=== PATIENT | female | born 1990 | race Two or more races ===

== ENCOUNTER 2016-11-06 17:27 | Emergency (ER) | payer OTHER ==
[2016-11-06 17:36] VITALS: BP 133/89
--- NOTE | 2016-11-06 18:56 | ER Document Report ---
ED Skin Rash/Insect Bite/Abscs - General Chief Complaint: Rash Stated Complaint: RASH ALL OVER Time Seen by Provider: 11/06/16 18:25 Mode of Arrival: Ambulatory Information source: Patient Notes: 26-year-old female presents to ED for rash to her arms and legs that she has had for quite a while. She states she has been to the [facility] in the which is her primary MD at times and had biopsies to see if there was a fungal rash or insect back negative. She states she asked for dermatology review told they needed to do some more testing on it before they sent her to a [facility]. She states she taken Benadryl and triamcinolone for the rash and it is not helping at all. They told her that it looked like it might be psoriasis. TRAVEL OUTSIDE OF THE [place] IN LAST 30 DAYS: No - HPI Patient complains to provider of: Skin rash/lesion Onset: Other - several weeks Onset/Duration: Gradual Quality of pain: No pain Skin Character: Rash Quality of rash: Itchy Identify cause: No Similar symptoms previously: Yes Recently seen / treated by doctor: Yes - Related Data Allergies/Adverse Reactions: No Known Allergies Allergy (Verified 11/06/16 17:32) Past Medical History - General Information source: Patient - Social History Smoking Status: Never Smoker Cigarette use (# per day): No Chew tobacco use (# tins/day): No Smoking Education Provided: No Frequency of alcohol use: None Drug Abuse: None Lives with: Family Family History: Malignancy, Other - lupus. denies: Arthritis, CAD, COPD, CVA, DM, Hyperlipidemia, Hypertension Patient has suicidal ideation: No Patient has homicidal ideation: No - Past Medical History Cardiac Medical History: Reports: None Pulmonary Medical History: Reports: None EENT Medical History: Reports: None Neurological Medical History: Reports: None Endocrine Medical History: Reports: None Renal/ Medical History: Reports: None Malignancy Medical History: Reports: None GI Medical History: Reports: None Musculoskeltal Medical History: Reports None Skin Medical History: Reports None Psychiatric Medical History: Reports: None Traumatic Medical History: Reports: None Infectious Medical History: Reports: None Surgical Hx: Negative Past Surgical History: Reports: None - Immunizations Immunizations up to date: Yes Review of Systems - Review of Systems Constitutional: No symptoms reported EENT: No symptoms reported Cardiovascular: No symptoms reported Respiratory: No symptoms reported Gastrointestinal: No symptoms reported Genitourinary: No symptoms reported Female Genitourinary: No symptoms reported Musculoskeletal: No symptoms reported Skin: Rash Hematologic/Lymphatic: No symptoms reported Neurological/Psychological: No symptoms reported -: Yes All other systems reviewed and negative Physical Exam - Vital signs Vitals: Temp Pulse Resp BP Pulse Ox 98.2 F 104 H 20 133/89 H 100 11/06/16 17:32 11/06/16 17:32 11/06/16 17:32 11/06/16 17:32 11/06/16 17:32 Interpretation: Normal - General General appearance: Appears well, Alert - HEENT Head: Normocephalic, Atraumatic Eyes: Normal Pupils: PERRL - Respiratory Respiratory status: No respiratory distress Chest status: Nontender Breath sounds: Normal Chest palpation: Normal - Cardiovascular Rhythm: Regular Heart sounds: Normal auscultation Murmur: No - Abdominal Inspection: Normal Distension: No distension Bowel sounds: Normal Tenderness: Nontender Organomegaly: No organomegaly - Back Back: Normal, Nontender - Extremities General upper extremity: Normal inspection, Nontender, Normal color, Normal ROM , Normal temperature General lower extremity: Normal inspection, Nontender, Normal color, Normal ROM , Normal temperature, Normal weight bearing. No: Hardik's sign - Neurological Neuro grossly intact: Yes Cognition: Normal Orientation: AAOx4 Manas Coma Scale Eye Opening: Spontaneous Manas Coma Scale Verbal: Oriented Grawn Coma Scale Motor: Obeys Commands Grawn Coma Scale Total: 15 Speech: Normal Motor strength normal: LUE, RUE, LLE, RLE Sensory: Normal - Psychological Associated symptoms: Normal affect, Normal mood - Skin Skin Temperature: Warm Skin Moisture: Dry Skin Color: Normal Skin irregularity: Rash Location of irregularity: Extremities - Arms and legs Course - Vital Signs Vital signs: Temp Pulse Resp BP Pulse Ox 98.2 F 104 H 20 133/89 H 100 11/06/16 17:32 11/06/16 17:32 11/06/16 17:32 11/06/16 17:32 11/06/16 17:32 Discharge - Discharge Clinical Impression: Rash and nonspecific skin eruption Condition: Stable Disposition: HOME, SELF-CARE Additional Instructions: You were seen today for a rash to your arms and legs. Then seeing your primary doctor at the [facility] but this. You will need to get a dermatology referral from them as you have . I would try Eucerin cream on your rash as some of the places look like they could be psoriasis Prescriptions: Hydroxyzine HCl 25 mg PO Q6HP PRN #20 tablet PRN Reason: Forms: Elevated Blood Pressure
== END 2016-11-06 19:05 | disposition home or self-care (01) ==
LOC: ER 17:27
DX: R21 Rash and other nonspecific skin eruption (principal)
CPT/HCPCS: 99282